=== PATIENT | male | born 1990 | race Caucasian/White ===

== ENCOUNTER → 2018-10-24 | Outpatient (CLI) | payer OTHER ==
--- NOTE | 2018-10-25 07:11 | US ---
EXAMINATION TYPE: US kidneys/renal and bladder DATE OF EXAM: 10/24/2018 COMPARISON: NONE CLINICAL HISTORY: N20.2 Calculus of kidney with calculus of ureter. EXAM MEASUREMENTS: Right Kidney: 9.4 x 4.7 x 3.9 cm Left Kidney: 10.9 x 5.1 x 4.8 cm Right Kidney: No hydronephrosis or masses seen. Echogenic foci visualized measuring 0.7 cm Left Kidney: No hydronephrosis or masses seen Bladder: wnl Bilateral Jets seen: Yes IMPRESSION: 1. Right renal stone without obstruction.
== END | disposition home or self-care (01) ==
LOC: RADUSWWP 16:09
PROVIDERS: ATTEND Family Medicine
DX: N20.0 Calculus of kidney (principal)
CPT/HCPCS: 76770